=== PATIENT | male | born 1965 | race Caucasian/White ===

== ENCOUNTER → 2021-09-21 | Outpatient (CLI) | payer SELFPAY ==
[~2021-09-21] VITALS: Ht 175.3 cm; Wt 81.2 kg
== END ==
LOC: EROP 07:19
DX: U07.1 COVID-19 (principal)
CPT/HCPCS: U0002

== ENCOUNTER → 2021-09-21 | Outpatient (CLI) | payer MEDICARE | LOC: EROP 13:30 | DX: U07.1 COVID-19 (principal) | CPT/HCPCS: 96365 ==

== ENCOUNTER → 2022-03-09 | Outpatient (CLI) | payer OTHER | LOC: EROP 07:26 | DX: J06.9 Acute upper respiratory infection, unspecified (principal); Z20.822 Contact with and (suspected) exposure to COVID-19 | CPT/HCPCS: U0002 ==